=== PATIENT | female | born 1995 | race Caucasian/White ===

== ENCOUNTER 2021-10-22 06:08 | Inpatient (IN) | payer BC ==
[~2021-10-22 06:08] MED LIST: Bupivacaine 0.25% 10 ML SDV ONE
[2021-10-22] MEDS ORDERED: Nalbuphine HCl 10 MG/ 1ML Amp IVPUSH PRN (06:43)
[2021-10-22] MEDS ORDERED: Ondansetron 4 MG/2 ML SDV IVPUSH PRN (06:43)
[2021-10-22] MEDS ORDERED: Lidocaine 1% 50 ML MDV INJECT ONE (06:43)
[2021-10-22] MEDS ORDERED: Sodium Chloride 0.9% 10 ML Syringe FLUSH PRN (06:43)
[2021-10-22] MEDS: Lactated Ringers 1,000 ML IV SCH ×2 (07:25→07:28)
[2021-10-22] MEDS ORDERED: diphenhydrAMINE 50 MG/ML SDV IVPUSH PRN (07:33)
[2021-10-22] MEDS ORDERED: ePHEDrine 50 MG/ML SDV IVPUSH PRN (07:33)
[2021-10-22] MEDS ORDERED: Bupivacaine/fentaNYL/NS 100 ML Bag EPIDUR PRN (07:33)
[2021-10-22] MEDS ORDERED: fentaNYL 100 MCG/2 ML SDV EPIDUR PRN (07:33)
[2021-10-22] MEDS ORDERED: Oxytocin/Lactated Ringers 10 UNIT/1,000 ML BAG IV SCH (08:45)
[2021-10-22] MEDS ORDERED: Sodium Chloride 0.9% 10 ML Syringe FLUSH SCH (09:00)
[2021-10-22] MEDS ORDERED: Docusate Sodium 100 MG Cap PO PRN (09:58)
[2021-10-22] MEDS ORDERED: Witch Hazel Medicated Pads 40/Jar TOP PRN (09:58)
[2021-10-22] MEDS ORDERED: Acetaminophen 325 MG Tab PO PRN (09:58)
[2021-10-22] MEDS ORDERED: Benzocaine/Menthol 20%-0.5% Spray 78 GM Cannister TOP PRN (09:58)
[2021-10-22] MEDS: Ibuprofen 600 MG Tab PO PRN (15:40)
[2021-10-23] MEDS ORDERED: Prenatal Multivitamin with Calcium/Folic Acid/Iron Tab PO SCH (09:00)
[2021-10-23] MEDS: Ibuprofen 600 MG Tab PO PRN (09:23)
== END 2021-10-23 10:11 | disposition home or self-care (01) | DRG 560 ==
LOC: JD.OBCHECK 06:08 → JD.OB 06:09 → JD.OBCHECK 06:44 → OBSVTOIN 09:12 → JD.OB 09:13 → EDSTATUS 10-25 06:07
PROVIDERS: ADMIT Obstetrics & Gynecology; ATTEND Obstetrics & Gynecology
PROC: 10D07Z6 Extraction of Products of Conception, Vacuum, Via Natural or Artificial Opening (ICD-10-PCS; principal; 2021-10-22)
PROC: 3E0R3BZ Introduction of Anesthetic Agent into Spinal Canal, Percutaneous Approach (ICD-10-PCS; principal; 2021-10-22)
PROC: 10907ZC Drainage of Amniotic Fluid, Therapeutic from Products of Conception, Via Natural or Artificial Opening (ICD-10-PCS; principal; 2021-10-22)
DX: O76 Abnormality in fetal heart rate and rhythm complicating labor and delivery (principal); Z3A.39 39 weeks gestation of pregnancy; Z37.0 Single live birth; N96 Recurrent pregnancy loss
CPT/HCPCS: 36415; 51701; 59025; 59409; 85027; 86592; A9270-GY; J2300; J2590; J3010; J3490; J7120